=== PATIENT | female | born 1970 | race Caucasian/White ===

== ENCOUNTER 2017-06-15 18:37 | Emergency (ER) | payer MEDICAID ==
[~2017-06-15] VITALS: Ht 172.7 cm; Wt 60.9 kg
[~2017-06-15 18:37] MED LIST: ALBU6.7H INH; GUAI1TBM19 PO; IBUP-1573 PO; PERM60CR4 TOP; ZOF4T PO
[2017-06-15 18:41] VITALS: BP 122/80
== END 2017-06-15 19:49 | disposition left against medical advice (07) ==
LOC: ER 18:38
DX: M79.642 Pain in left hand (principal); W22.09XA Striking against other stationary object, initial encounter; Y92.89 Other specified places as the place of occurrence of the external cause; Z53.21 Procedure and treatment not carried out due to patient leaving prior to being seen by health care provider
CPT/HCPCS: 73130